=== PATIENT | female | born 1955 | race Caucasian/White ===

== ENCOUNTER → 2017-06-06 | Outpatient (CLI) | payer BC ==
--- NOTE | 2017-06-10 16:31 | Diagnostic Imaging Report ---
#[id number] - MGSCRBIL #BILATERAL DIGITAL SCREENING MAMMOGRAM WITH CAD: 06/06/2017 CLINICAL: Routine screening. Comparison is made to exams dated: 05/28/2016 mammogram, 05/26/2015 mammogram and 05/17/2014 mammogram - [facility]. Current study contains 4 films. The tissue of both breasts is heterogeneously dense. This may lower the sensitivity of mammography. Current study was also evaluated with a Computer Aided Detection (CAD) system. There is a benign calcification in the left breast. There is a mole marker on both breasts. No significant masses, calcifications, or other findings are seen in either breast. There has been no significant interval change. IMPRESSION: BENIGN There is no mammographic evidence of malignancy. A 1 year screening mammogram is recommended. The patient will be notified by letter of the results. Vasyl encinas/tejas:06/10/2017 12:12:55 Pattern Shop Supervisor: Katerina BRAVO(R)(M), [facility] letter sent: Compared to Prior B9 Mammogram BI-RADS: 2 Benign
== END | disposition home or self-care (01) ==
LOC: MAMMO 09:58
PROVIDERS: ATTEND Obstetrics & Gynecology
DX: Z12.31 Encounter for screening mammogram for malignant neoplasm of breast (principal)
CPT/HCPCS: 77067

== ENCOUNTER → 2018-03-03 | Outpatient (CLI) | payer BC ==
--- NOTE | 2018-03-06 08:37 | Diagnostic Imaging Report ---
#[id number] - MGDXBIL #BILATERAL DIGITAL DIAGNOSTIC MAMMOGRAM WITH CAD: 03/03/2018 Comparison is made to exams dated: 06/06/2017 mammogram and 05/28/2016 mammogram - [facility]. A total of 6 films were obtained. The tissue of both breasts is heterogeneously dense. This may lower the sensitivity of mammography. Current study was also evaluated with a Computer Aided Detection (CAD) system. There is a benign calcification in the left breast. There is a mole marker on both breasts. No significant masses, calcifications, or other findings are seen in either breast. There has been no significant interval change. IMPRESSION: BENIGN There is no mammographic evidence of malignancy. A 1 year screening mammogram is recommended. The patient will be notified by letter of the results. Vasyl Chicas Jr., D.O. cw/:03/03/2018 17:32:13 Wood Gluer: Katerina ALTAMIRANO)(Kia), [facility] letter sent: Compared to Prior B9 Mammogram BI-RADS: 2 Benign
== END ==
LOC: MAMMO 14:56
PROVIDERS: ATTEND Obstetrics & Gynecology
DX: N64.4 Mastodynia (principal)
CPT/HCPCS: 77066

== ENCOUNTER → 2019-05-07 | Outpatient (CLI) | payer BC | LOC: MAMMO 10:22 | PROVIDERS: ATTEND Obstetrics & Gynecology | DX: Z12.31 Encounter for screening mammogram for malignant neoplasm of breast (principal) | CPT/HCPCS: 77067 ==

== ENCOUNTER → 2019-06-20 | Outpatient (CLI) | payer BC ==
--- NOTE | 2019-06-22 20:02 | Diagnostic Imaging Report ---
#[id number] - MGDXRT #UNILATERAL RIGHT DIGITAL DIAGNOSTIC MAMMOGRAM WITH SPOT COMPRESSION: 06/20/2019 Comparison is made to exams dated: 05/07/2019 mammogram and 03/03/2018 mammogram - [facility]. The tissue of the right breast is heterogeneously dense. This may lower the sensitivity of mammography. Apparent asymmetry resolves on spot compression images. The findings are suggestive of a summation shadow. No significant masses, calcifications, or other findings are seen in the breast. IMPRESSION: BENIGN There is no mammographic evidence of malignancy. A 1 year screening mammogram is recommended. The patient will be notified by letter of the results. JAEL ENGEL M.D. kw/:06/22/2019 15:31:20 Visitor Services Assistant: Katerina BRAVO(Rica)(M), [facility] letter sent: Compared to Prior B9 Mammogram BI-RADS: 2 Benign
== END ==
LOC: MAMMO 08:41
PROVIDERS: ATTEND Obstetrics & Gynecology
DX: N64.89 Other specified disorders of breast (principal)

== ENCOUNTER → 2020-07-14 | Outpatient (CLI) | payer BC | LOC: MAMMO 09:39 | PROVIDERS: ATTEND Internal Medicine | DX: Z12.31 Encounter for screening mammogram for malignant neoplasm of breast (principal) | CPT/HCPCS: 77067 ==

== ENCOUNTER → 2021-08-12 | Outpatient (CLI) | payer BC | LOC: MAMMO 10:41 | PROVIDERS: ATTEND Obstetrics & Gynecology | DX: Z12.31 Encounter for screening mammogram for malignant neoplasm of breast (principal) | CPT/HCPCS: 77067 ==

== ENCOUNTER → 2022-08-18 | Outpatient (CLI) | payer BC | LOC: MAMMO 09:57 | PROVIDERS: ATTEND Internal Medicine | DX: Z12.31 Encounter for screening mammogram for malignant neoplasm of breast (principal) | CPT/HCPCS: 77067 ==